=== PATIENT | female | born 1950 | race Caucasian/White ===

== ENCOUNTER → 2017-07-11 | Day surgery (SDC) | payer OTHER ==
--- NOTE | 2017-07-03 16:06 | MH ---
cc: JANICE CALDWELL MD DATE OF ADMISSION: 07/11/2017 REASON FOR ADMISSION Anterior and posterior repair, repair of perineal body. HISTORY OF PRESENT ILLNESS The patient is a 67-year-old white female, 4, para 2, who has issues with pelvic organ prolapse. She has anterior and posterior compartment defect as well as loss of perineal body. She has tried a pessary with limited result. She had an ultrasound of the pelvis that was normal. She wants to proceed with surgical correction. PAST MEDICAL HISTORY 1. The patient's medical history is notable for "systemic poisoning." She had a long list of somatic complaints that are documented in her primary care chart. 2. Hypertension. MEDICATIONS 1. Multiple fsvn-stl-ucftptq products. 2. Lisinopril 40 mg q. day. 3. Diltiazem 120 mg q. day. ALLERGIES 1. ADHESIVE TAPE. 2. AMOXICILLIN. 3. CIPRO. 4. CODEINE. 5. INDOMETHACIN. 6. LEVAQUIN. 7. METHOTREXATE. 8. NIACIN. 9. PEN-VEE K. 10. SULFASALAZINE. 11. VOLTAREN. 12. DANDRUFF SHAMPOO. She reports that she can take ibuprofen for pain without any complication. COMMUNITY RELATIONS MANAGER HISTORY No STDs or abnormal Pap smears. OB HISTORY Two vaginal deliveries. FAMILY HISTORY Noncontributory. SOCIAL HISTORY , has good social support. No alcohol, tobacco or caffeine. REVIEW OF SYSTEMS As above. No chest pain, orthopnea, PND. No nausea, vomiting, fevers or chills. No vaginal bleeding or discharge. PHYSICAL EXAMINATION VITAL SIGNS: She is afebrile. Vital signs are stable. Blood pressure 120/76. Height 5.2, weight 119, BMI 21.8. GENERAL: Patient is alert and oriented, in no acute distress. No sign of cognitive dysfunction or depression. HEENT: Within normal limits. NECK: Supple. No JVD. CHEST: Clear. HEART: Regular rate and rhythm. ABDOMEN: Soft, nontender. No hepatosplenomegaly. No CVA tenderness. PELVIC: In the office we note a POP-Q score of Aa subscript is +1; Ap is 0; point C is -6; total vaginal length is 10; perineal body is 2. Postvoid residual is 30 cc. Q-tip test at 30 degrees from the horizontal. The remainder of exam under anesthesia. EXTREMITIES: Normal. SKIN: Without rashes. NEUROLOGIC: Nonfocal. No DVT signs. ASSESSMENT Patient with symptomatic pelvic organ prolapse, anterior compartment and posterior compartment, and loss of perineal body. DISCUSSION We discussed the potential risks, benefits and alternatives of the planned procedure including failure rate, possibility of prolonged catheterization, possibility of de walter urinary incontinence. 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 She expressed understanding of the plan. At this point in light of her allergies to multiple antibiotics, we will use Cleocin and Flagyl. Will use DVT prophylaxis with sequential compression device. Anticipate outpatient procedure. MD LOUIS Kapadia/FREDRICK /1:49 PM /3:55 PM
[~2017-07-11] VITALS: Ht 157.5 cm; Wt 53.9 kg
[~2017-07-11] MED LIST: CALC500C2 CHEW; CHLORHEXIDINE GLUCONATE 2 % 1 PACK (2 CLOTHS) TOPICAL PRN; CLINDAMYCIN 600 MG/NS 100 ML IV PRN; COQ150CA PO; DILT120C9 PO; DO NOT ADM ANY ANTICOAGULANT DRUGS PRN; DULC100C PO; ECASA81 PO; ESTROGENS CONJUGATED VAG CREA 15 APPL/30 GM TUBE ONE; FLUORESCEIN SOD 10% SOLN 500 MG/5 ML AMP ONE; FOLI400T PO; INSULIN HUMAN REGULAR 1,000 UNITS/10 ML VIAL SQ PRN; KETOROLAC TROMETHAMINE 30 MG/ML (IVP) VIAL IV PUSH ONE; KETOROLAC TROMETHAMINE 30 MG/ML (IVP) VIAL IV PUSH PRN; LACTATED RINGER'S 1000 ML IV PRN; LIDOCAINE 1%/EPINEPHrine 1:100,000 SOLN 50 ML VIAL ONE; LIDOCAINE HCL 1% PF 5 ML AMPULE OTHER ONE; LISI40TA PO; LYSI500T12 PO; METHYLENE BLUE 10 MG/ML VIAL IV ONE; METOPROLOL TARTRATE 25 MG TAB PO PRN; METRONIDAZOLE 500 MG/100 ML ISONTONIC SOLN IV PRN; ONDANSETRON HCL 4 MG/2 ML VIAL IV PUSH ONE; ONDANSETRON HCL 4 MG/2 ML VIAL IV PUSH PRN; POTA-255 PO; POVIDONE IODINE 5% (ANTISEPSIS KIT) 4 APPLICATIONS EACH NARE PRN; PROPOFOL 200 MG/20 ML AMP IV ONE; PYRI100T PO; RED600TA; SELE200T17 PO; SODIUM CHLORID 0.9% 500 ML IV PRN; VITA-142 PO; VITA1000 PO; VITA250T3 PO; ZINC50TA2 PO; ePHEDrine/NS 25 MG/5 ML SYR IV ONE; traMADol HCL 50 MG TAB PO PRN
--- NOTE | 2017-07-11 10:17 | MP ---
cc: JANICE CALDWELL MD DATE OF SURGERY: 07/11/2017 PREOPERATIVE DIAGNOSIS 1. Cystocele, N81.11. 2. Rectocele, N81.6. POSTOPERATIVE DIAGNOSIS 1. Cystocele, N81.11. 2. Rectocele, N81.6. 3. Uterovaginal prolapse, N99.3. PROCEDURE 1. Anterior and posterior repair combined with enterocele, 22436. 2. Colpopexy, extraperitoneal, 07642. 3. Cystoscopy, [address]. SURGEON Dr. Caldwell. ANESTHESIA Laryngeal mask. ESTIMATED BLOOD LOSS 25 cc. URINE OUTPUT 300 cc. FLUIDS 1000 cc crystalloid. 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 FINDINGS External genitalia normal. POP-Q score: Aa is 0; Ap is 0; point C is -2; total vaginal length is 10; general hiatus is 8; perineal body is 2. Following repair Aa is -3; Ap is -3; point C is -8; total vaginal length is 10; general hiatus is 4; perineal body is 5. Rectal exam was normal following repair. Cystoscopy shows normal trigone, good coaptation of urethra. Ureteral orifices patent x2. Dome and base of bladder normal. SPECIMENS Vaginal mucosa, anterior and posterior mucosa. COMPLICATIONS None. DISPOSITION To recovery room stable. COUNTS Needle and sponge counts correct. DRAINS Zuniga catheter. PROPHYLAXIS Antibiotic prophylaxis: Flagyl and Cleocin. DVT prophylaxis: Sequential compression device. Timeout procedure per protocol. SUMMARY OF INDICATION FOR PROCEDURE Patient with symptomatic anterior and posterior compartment prolapse. DETAILS OF PROCEDURE The patient was taken to the operating theatre, identified, prepped and draped in a fashion appropriate for the planned procedure. She was in the dorsal lithotomy position with careful attention paid to placement of legs in the stirrups to avoid undue stress to sensitive neurovascular structures. Above findings noted. Neurovascular integrity documented. A Zuniga catheter was placed. Methylene blue was instilled into the bladder Compared to the patient's exam in the office she had more uterovaginal prolapse than we had appreciated in the office. She had significant anterior and posterior compartment defect already recognized. The anterior compartment was repaired first, infiltrated here with epinephrine and lidocaine solution. We made a midline incision from the cervix to the area approximately 1 cm below the urethra. There was no spill of methylene blue with dissection. Anterior repair is performed in the standard fashion with delayed absorbable suture. The mucosa was trimmed and closed with a running Vicryl suture. A small amount of hemostatic matrix was used to obviate the need for packing. Cystoscopy was performed using a 17-Lao bridge and a 70-degree scope. The patient had received IV fluorescein and we were able to identify ureteral patency with green urine from each ureteral orifice. The anterior compartment was completed, but significant posterior and central compartment defects remained. There was also a relatively attenuated perineal body. We made a midline incision after providing additional anesthesia with a pudendal block. We made a midline incision from the perineal body to the cervicovaginal junction, reflected the rectal tissues from the mucosa. With one finger in the rectum there was no damage to the rectum noted. The rectocele and enterocele were repaired in standard fashion with delayed absorbable suture. The vaginal mucosa was trimmed. The mucosa was closed with a running Vicryl suture. The perineal body was rebuilt in a standard technique with delayed absorbable suture. We made sure that the vagina was not constricted. At the end of the procedure the vagina could accommodate two fingerbreadths easily. The suture lines were intact. The rectal exam was normal. The procedure was concluded. The patient tolerated the procedure well and went to the recovery room in stable condition. MD LOUIS Kapadia/FREDRICK /9:51 AM /10:04 AM
[2017-07-11 10:20] VITALS: BP 130/80; PULSE 71; RESP 20; TEMP 97.5; O2SAT 100
--- NOTE | 2017-07-11 15:21 | EKG ---
Date Performed: 07/11/2017 Time Performed: 06:45:31 PTAGE: 67 years EKG: SINUS BRADYCARDIA BORDERLINE ECG NO PREVIOUS TRACING DOCTOR: Sara Kline Interpretating Date/Time 07/11/2017 15:20:41
== END | disposition home or self-care (01) ==
LOC: HSDC 05:52
PROVIDERS: ATTEND Obstetrics & Gynecology Gynecology
DX: N81.4 Uterovaginal prolapse, unspecified (principal); N81.6 Rectocele; I10 Essential (primary) hypertension
CPT/HCPCS: 00942; 57265; 57282; 88302; 93005; J1885; J2405; J3010; J7120